=== PATIENT | female | born 1975 | race Caucasian/White ===

== ENCOUNTER 2019-02-26 07:58 | Emergency (ER) | payer MEDICAID ==
--- NOTE | 2019-02-26 08:39 | Emergency Department Record ---
History of Present Illness - General Chief Complaint: Hypertension Stated Complaint: HYPERTENSION Time Seen by Provider: 02/26/19 08:17 Source: Patient Mode of Arrival: Ambulatory - History of Present Illness Initial Comments: hypertension and she was getting her blood drawn and BP was high and she told the nurse she was having numbness on both sides of face and she has had this before and last night it was whole body numbness. PMH of hypertension and DM , recent weight gain of 30 pounds, palpitations and mitrial valve prolapse and intermittent chest pain and metformin started yesterday. 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 Slight headache and took ibuprofen and naproxyn Onset/Timin -: Month(s) Timing: Waxing/waning History of Same: Yes History of Trauma: No Severity: Mild Improves With: Nothing Worsens With: Nothing Associated Symptoms: Denies other symptoms - Arpit Coma Scale Eye Response: (4) Open spontaneously Motor Response: (6) Obeys commands Verbal Response: (5) Oriented Monon Total: 15 - Related Data Allergies Allergy/AdvReac Type Severity Reaction Status Date / Time No Known Allergies Allergy PT UNSURE Verified 02/26/19 08:07 OF REACTION Travel Screening - Travel/Exposure Within Last 30 Days Have you traveled within the last 30 days?: No - Travel/Exposure Within Last Year Have you traveled outside the [place] in the last year?: No - Additonal Travel Details Have you been exposed to anyone with a communicable illness?: No - Travel Symptoms Symptom Screening: None Review of Systems Reviewed: No additional complaints except as noted below Constitutional: Reports: As per HPI. Denies: Chills, Fever, Malaise, Night sweats, Weakness, Weight change Eyes: Reports: As per HPI. Denies: Eye discharge, Eye pain, Photophobia, Vision change ENT: Reports: As per HPI. Denies: Congestion, Dental pain, Ear pain, Epistaxis , Hearing loss, Throat pain Respiratory: Reports: As per HPI. Denies: Cough, Dyspnea, Hemoptysis, Stridor, Wheezes Cardiovascular: Reports: As per HPI. Denies: Arrhythmia, Chest pain, Dyspnea on exertion, Edema, Murmurs, Orthopnea, Palpitations, Paroxysmal nocturnal dyspnea, Rheumatic Fever, Syncope Endocrine: Reports: As per HPI. Denies: Fatigue, Heat or cold intolerance, Polydipsia, Polyuria Gastrointestinal: Reports: As per HPI. Denies: Abdominal pain, Constipation, Diarrhea, Hematemesis, Hematochezia, Melena, Nausea, Vomiting Genitourinary: Reports: As per HPI. Denies: Abnormal menses, Discharge, Dyspareunia, Dysuria, Frequency, Hematuria, Incontinence, Retention, Urgency Musculoskeletal: Reports: As per HPI. Denies: Arthralgia, Back pain, Gout, Joint swelling, Myalgia, Neck pain Skin: Reports: As per HPI. Denies: Bruising, Change in color, Change in hair/ nails, Lesions, Pruritus, Rash Neurological: Reports: As per HPI. Denies: Abnormal gait, Confusion, Headache, Numbness, Paresthesias, Seizure, Tingling, Tremors, Vertigo, Weakness Psychiatric: Reports: As per HPI. Denies: Anxiety, Auditory hallucinations, Depression, Homicidal thoughts, Suicidal thoughts, Visual hallucinations Hematological/Lymphatic: Reports: As per HPI. Denies: Anemia, Blood Clots, Easy bleeding, Easy bruising, Swollen glands Past Medical History - SOCIAL HISTORY Smoking Status: Current every day smoker Alcohol Use: Heavy Alcohol Use Comment: stated 2 drinks a day Drug Use: None - RESPIRATORY Hx Respiratory Disorders: No Comment:: has an inhaler prn - CARDIOVASCULAR Hx Cardio Disorders: Yes Hx Hypertension: Yes Comment:: prolapsed mitral valve - NEURO Hx Neuro Disorders: No - GI Hx GI Disorders: Yes Hx Reflux: Yes - Hx Genitourinary Disorders: No - ENDOCRINE Hx Endocrine Disorders: Yes Hx Diabetes: Yes (type 2) - MUSCULOSKELETAL Hx Musculoskeletal Disorders: No - PSYCH Hx Psych Problems: No - HEMATOLOGY/ONCOLOGY Hx Hematology/Oncology Disorders: No Family Medical History Any Significant Family History?: Yes Hx Diabetes: Father Hx Heart Disease: Father Physical Exam - General General Appearance: Alert, Oriented x3, Cooperative, No acute distress - Head Head exam: Normal inspection - Eye Eye exam: Normal appearance, PERRL Pupils: Normal accommodation - ENT ENT exam: Normal exam, Mucous membranes moist, Normal external ear exam, Normal orophraynx, TM's normal bilaterally Ear exam: Normal external inspection. negative: External canal tenderness Nasal Exam: Normal inspection. negative: Discharge, Sinus tenderness Mouth exam: Normal external inspection, Tongue normal Teeth exam: Normal inspection. negative: Dental caries Throat exam: Normal inspection. negative: Tonsillar erythema, Tonsillar exudate - Neck Neck exam: Normal inspection, Full ROM. negative: Tenderness - Respiratory Respiratory exam: Normal lung sounds bilaterally. negative: Respiratory distress - Cardiovascular Cardiovascular Exam: Regular rate, Normal rhythm, Normal heart sounds - GI/Abdominal GI/Abdominal exam: Soft, Normal bowel sounds. negative: Tenderness - Rectal Rectal exam: Deferred - exam: Deferred - Extremities Extremities exam: Normal inspection, Full ROM, Normal capillary refill. negative: Tenderness - Back Back exam: Reports: Normal inspection, Full ROM. Denies: Muscle spasm, Rash noted, Tenderness - Neurological Neurological exam: Alert, Normal gait, Oriented X3, Reflexes normal - Psychiatric Psychiatric exam: Normal affect, Normal mood - Skin Skin exam: Dry, Intact, Normal color, Warm Course Vital Signs 02/26/19 08:10 Temperature 97.8 F Pulse Rate 70 Respiratory 18 Rate Blood Pressure 139/107 Pulse Ox 99 - Reevaluation(s) Reevaluation #1: talked about getting a head CT and patient didn't want the head CT 02/26/19 08:48 Reevaluation #2: reviewed outpatient labs and hg 13.9 02/26/19 09:49 Medical Decision Making - Data Complexity MDM Data: Labs Ordered and/or Reviewed (reviewed labs ordered by outpatient visit and CBC, good and CMP good ,vit D slightly low), X-Ray Ordered and/or Reviewed, EKG Ordered and/or Reviewed (EKG NSR no acute changes) Disposition Clinical Impression: Paresthesia, Palpitations, Hx of mitral valve prolapse Disposition: Home, Self-Care Condition: (1) Good Instructions: Hypertension (ED), Paresthesia (ED) Additional Instructions: follow up with primary provider in one week continue home meds Forms: Patient Portal Access Time of Disposition: 10:34 Quality - Quality Measures Quality Measures: N/A - Blood Pressure Screening Does Patient Have Any of the Following: No, Active Dx of HTN Blood Pressure Classification: Hypertensive Reading Systolic Measurement: 139 Diastolic Measurement: 107 Screening for High Blood Pressure: Patient Exclusion, Hx of HTN [G9744]
== END 2019-02-26 10:55 | disposition home or self-care (01) ==
LOC: ER 07:58
DX: R20.2 Paresthesia of skin (principal); R00.2 Palpitations; R51 Headache; R07.9 Chest pain, unspecified; I10 Essential (primary) hypertension; E11.9 Type 2 diabetes mellitus without complications; Z79.84 Long term (current) use of oral hypoglycemic drugs; R60.0 Localized edema; F17.210 Nicotine dependence, cigarettes, uncomplicated; I34.1 Nonrheumatic mitral (valve) prolapse
CPT/HCPCS: 80053; 80061; 82306; 83036; 83880; 84443; 85025; 93005; 93010; 99284

== ENCOUNTER 2019-03-27 19:57 | Emergency (ER) | payer MEDICAID ==
[2019-03-27] MEDS ORDERED: SILVER SULFADIAZINE 25 GM CREAM TOP ONE (20:28)
--- NOTE | 2019-03-27 20:32 | Emergency Department Record ---
History of Present Illness - General Chief complaint: Burn/Smoke Inhalation Stated complaint: BURN ON ARM Time Seen by Provider: 03/27/19 20:25 Source: Patient Mode of Arrival: Ambulatory Limitations: No limitations - History of Present Illness Initial comments: 44 yo female presents with a burn to the left forearm 2 days ago. She has a blister on the wrist that continues to enlarge. It is not circumferential. She is up to date on immunizations. She burned it cooking a hot egg. Complaint: Burn Onset/Timin -: Days(s) Type of Exposure: Hot liquid Smoke Inhalation: None Location: Other Severity: Mild Severity scale (1-10): 3 Associated Symptoms: Denies other symptoms Treatment Prior to Arrival Comment:: neuosporine and burn gel - Related Data Previous Rx's Medication Instructions Recorded Silver Sulfadiazine [Ssd] 25 gm TP BID #1 cream.gm. 03/27/19 Allergies Allergy/AdvReac Type Severity Reaction Status Date / Time No Known Allergies Allergy PT UNSURE Verified 02/26/19 08:07 OF REACTION Travel Screening - Travel/Exposure Within Last 30 Days Have you traveled within the last 30 days?: Yes Location Detail:: [place] - Travel/Exposure Within Last Year Have you traveled outside the [place] in the last year?: No - Additonal Travel Details Have you been exposed to anyone with a communicable illness?: No - Travel Symptoms Symptom Screening: None Review of Systems Constitutional: Denies: Chills, Fever, Malaise, Weakness Eyes: Denies: Eye discharge ENT: Denies: Congestion, Throat pain Respiratory: Denies: Cough Cardiovascular: Denies: Chest pain, Syncope Endocrine: Denies: Fatigue Gastrointestinal: Denies: Abdominal pain, Diarrhea, Nausea, Vomiting Genitourinary: Denies: Dysuria, Urgency Musculoskeletal: Denies: Arthralgia, Back pain, Myalgia Skin: Reports: As per HPI, Change in color, Other Neurological: Denies: Numbness, Tingling Psychiatric: Denies: Anxiety Hematological/Lymphatic: Denies: Easy bleeding, Easy bruising Past Medical History - SOCIAL HISTORY Smoking Status: Current every day smoker Alcohol Use: Occasional Drug Use: None - RESPIRATORY Hx Respiratory Disorders: Yes Hx Bronchitis: Yes Comment:: has an inhaler prn - CARDIOVASCULAR Hx Cardio Disorders: Yes Hx Hypertension: Yes Hx Palpitations: Yes Comment:: prolapsed mitral valve - NEURO Hx Neuro Disorders: No - GI Hx GI Disorders: Yes Hx Reflux: Yes - Hx Genitourinary Disorders: No - ENDOCRINE Hx Endocrine Disorders: Yes Hx Diabetes: Yes (type 2) - MUSCULOSKELETAL Hx Musculoskeletal Disorders: No - PSYCH Hx Psych Problems: Yes Hx Anxiety: Yes - HEMATOLOGY/ONCOLOGY Hx Hematology/Oncology Disorders: No Family Medical History Any Significant Family History?: Yes Hx Diabetes: Father Hx Heart Disease: Father Physical Exam - General General Appearance: Alert, Oriented x3, Cooperative, No acute distress Limitations: No limitations - Head Head exam: Atraumatic, Normal inspection - Eye Eye exam: Normal appearance. negative: Conjunctival injection - ENT ENT exam: Normal exam Ear exam: Normal external inspection Nasal Exam: Normal inspection Mouth exam: Normal external inspection - Neck Neck exam: Normal inspection - Extremities Extremities exam: Full ROM, Tenderness. negative: Normal inspection, Joint swelling - Neurological Neurological exam: Alert, Oriented X3 - Psychiatric Psychiatric exam: Normal affect, Normal mood - Skin Skin exam: Other (3x2cm blister on forearm, no cellulitis) Course Vital Signs 03/27/19 20:11 Temperature 98.1 F Pulse Rate 96 H Respiratory 20 Rate Pulse Ox 99 - Reevaluation(s) Reevaluation #1: 03/27/19 20:31 Procedure: Wound debridement The blister was cleaned 11 blade was used to unroof and drain the blister Silvadene and dressing was placed Disposition Disposition: Discharge Clinical Impression: Partial thickness burn Disposition: Home, Self-Care Condition: (1) Good Instructions: Second Degree Burn (ED) Additional Instructions: Apply the burn cream twice daily Return immediately if you have any concerns with the healing of the burn over the next one week Prescriptions: Silver Sulfadiazine [Ssd] 25 gm TP BID #1 cream.gm. Forms: Patient Portal Access Time of Disposition: 20:41 Quality - Quality Measures Quality Measures: N/A - Blood Pressure Screening Does Patient Have Any of the Following: No Blood Pressure Classification: Pre-Hypertensive BP Reading Systolic Measurement: 114 Diastolic Measurement: 82 Screening for High Blood Pressure: < Pre-Hypertensive BP, F/U Documented > [G8950] Pre-Hypertensive Follow-up Interventions: Referral to alternative/primary care provider.
== END 2019-03-27 21:01 | disposition home or self-care (01) ==
LOC: ER 19:57
DX: T22.212A Burn of second degree of left forearm, initial encounter (principal); X10.1XXA Contact with hot food, initial encounter; Y93.G3 Activity, cooking and baking; I10 Essential (primary) hypertension; F17.210 Nicotine dependence, cigarettes, uncomplicated
CPT/HCPCS: 16020; 99283

== ENCOUNTER 2019-11-09 09:24 | Emergency (ER) | payer MEDICAID ==
[2019-11-09] MEDS ORDERED: CEPHALEXIN 500 MG CAPSULE PO STA (10:20)
--- NOTE | 2019-11-09 10:26 | Emergency Department Record ---
History of Present Illness - General Chief Complaint: Recheck - Other Stated Complaint: POST IV SWELLING PAIN RT LEG Time Seen by Provider: 11/09/19 09:55 Source: Patient, Family Mode of arrival: Ambulatory Limitations: No limitations - History of Present Illness Initial Comments: The patient is here due to having R hand and wrist pain. She had surgery at [facility] 2 days ago and stayed overnight until yesterday morning. The patient states she had an IV in the R wrist that began bleeding and was painful so they took it out. Since the area has become more painful and is causing mild R hand swelling. There is no arm or shoulder pain or swelling. The patient also has had some drainage from one of the surgical sites but that has stopped also. Additionally she forgot her Incentive Spirometer at the hospital and she also denies any CP, SOB, PATO, or sweating. Complaint: Wound re-check Onset/Timin -: Days(s) Initial Visit For: Other Returns Today for: Other Symptoms Since Prior Visit: Other - Related Data Home Medications Medication Instructions Recorded Confirmed Last Taken Hydrochlorothiazide [Hctz] 12.5 mg PO ASDIR 11/09/19 11/09/19 11/09/19 Hydrocortisone 10 mg PO ASDIR 11/09/19 11/09/19 11/09/19 Previous Rx's Medication Instructions Recorded Silver Sulfadiazine [Ssd] 25 gm TP BID #1 cream.gm. 03/27/19 Cephalexin [Keflex] 500 mg PO TID #21 cap 11/09/19 Allergies Allergy/AdvReac Type Severity Reaction Status Date / Time Iodinated Contrast Media AdvReac Intermediate loss of Verified 11/09/19 09:45 appitite and nausea Travel Screening - Travel/Exposure Within Last 30 Days Have you traveled within the last 30 days?: No - Travel/Exposure Within Last Year Have you traveled outside the [place] in the last year?: No - Additonal Travel Details Have you been exposed to anyone with a communicable illness?: No - Travel Symptoms Symptom Screening: None Review of Systems Constitutional: Denies: Chills, Fever Eyes: Denies: Eye discharge ENT: Denies: Congestion Respiratory: Denies: Cough, Dyspnea Past Medical History - SOCIAL HISTORY Smoking Status: Current every day smoker Alcohol Use: None Drug Use: None - RESPIRATORY Hx Respiratory Disorders: Yes Hx Bronchitis: Yes Comment:: has an inhaler prn - CARDIOVASCULAR Hx Cardio Disorders: Yes Hx Hypertension: Yes Hx Palpitations: Yes Comment:: prolapsed mitral valve - NEURO Hx Neuro Disorders: No - GI Hx GI Disorders: Yes Hx Reflux: Yes - Hx Genitourinary Disorders: No - ENDOCRINE Hx Endocrine Disorders: Yes Hx Diabetes: Yes (type 2) - MUSCULOSKELETAL Hx Musculoskeletal Disorders: No - PSYCH Hx Psych Problems: Yes Hx Anxiety: Yes - HEMATOLOGY/ONCOLOGY Hx Hematology/Oncology Disorders: No Family Medical History Any Significant Family History?: Yes Hx Diabetes: Father Hx Heart Disease: Father Physical Exam - General General Appearance: Alert, Oriented x3, Cooperative, No acute distress (The patient is resting comfortably in no distress.) - Head Head exam: Atraumatic, Normocephalic - Eye Eye exam: Normal appearance, PERRL - Neck Neck exam: Normal inspection, Full ROM. negative: Tenderness - Respiratory Respiratory exam: Normal lung sounds bilaterally. negative: Respiratory distress - Cardiovascular Cardiovascular Exam: Regular rate, Normal rhythm, Normal heart sounds - GI/Abdominal GI/Abdominal exam: Soft, Tenderness (Mild LUQ (2 days post op) but no obvious selling, drainage or erythema. ). negative: Rebound, Rigid - Extremities Extremities exam: Tenderness (There is very mild tenderness to the R radial distal forearm where the IV was but no obvious swelling or bruising.), Other (There is no R arm or antcubital fossa tenderness, swelling, or erythema.). negative: Normal inspection (The R hand has very mild/ trace swelling that is difficult to appreciate. There is very mild erythema around the R distal forearm IV site.), Calf tenderness, Joint swelling, Pedal edema Image of Hand: 1 - Area of pain and mild tenderness at IV site. - Neurological Neurological exam: Alert. negative: Motor sensory deficit Course Vital Signs 11/09/19 09:49 Temperature 98.4 F Pulse Rate 77 Respiratory 20 Rate Blood Pressure 131/86 Pulse Ox 99 - Reevaluation(s) Reevaluation #1: I did proved an Incentive Spirometer for the patient to take home and we did start her on Keflex. She is to contact her surgeon to see if it is OK to take an NSAID with the [place]. I also did discuss the need to F/U with her surgeon for recheck this week and to return for any worsening arm or any leg pain or swelling. 11/09/19 10:45 Disposition Disposition: Discharge Clinical Impression: Phlebitis Disposition: Home, Self-Care Condition: (2) Stable Instructions: Phlebitis (ED) Additional Instructions: Please continue the warm compresses to the R forearm IV site and take the Keflex as directed. Please check with your surgeon to see if it is OK to take an NSAID along with the Walton for pain. Please call the surgery office tomorrow for an appointment if needed for any worsening pain, fever, or vomiting. Prescriptions: Cephalexin [Keflex] 500 mg PO TID #21 cap Forms: Patient Portal Access Time of Disposition: 10:44 Quality - Quality Measures Quality Measures: N/A - Blood Pressure Screening View Details: Yes Does Patient Have Any of the Following: No Blood Pressure Classification: Pre-Hypertensive BP Reading Systolic Measurement: 131 Diastolic Measurement: 86 Screening for High Blood Pressure: < Pre-Hypertensive BP, F/U Documented > [G8950] Pre-Hypertensive Follow-up Interventions: Referral to alternative/primary care provider.
== END 2019-11-09 10:56 | disposition home or self-care (01) ==
LOC: ER 09:24
DX: T81.72XA Complication of vein following a procedure, not elsewhere classified, initial encounter (principal); I34.1 Nonrheumatic mitral (valve) prolapse; I10 Essential (primary) hypertension; F17.210 Nicotine dependence, cigarettes, uncomplicated; E11.9 Type 2 diabetes mellitus without complications; J40 Bronchitis, not specified as acute or chronic
CPT/HCPCS: 94010; 99283